=== PATIENT | female | born 1995 | race Caucasian/White ===

== ENCOUNTER 2023-06-24 07:01 | Day surgery (SDC) | payer MEDICAID ==
[~2023-06-24 07:01] MED LIST: Sodium Chloride 0.9% 1,000 ML IV SCH
[2023-06-24] MEDS ORDERED: Midazolam 1 MG/ML 2 ML SDV ONE (07:25)
[2023-06-24] MEDS ORDERED: fentaNYL 100 MCG/2 ML SDV ONE (07:25)
[2023-06-24] MEDS ORDERED: Propofol 200 MG/20 ML SDV ONE ×2 (07:25→08:45)
[2023-06-24] MEDS: Sodium Chloride 0.9% 1,000 ML IV SCH (07:43)
== END 2023-06-24 09:58 | disposition home or self-care (01) ==
LOC: JP.SDS 07:01
PROVIDERS: ATTEND Surgery
DX: R10.9 Unspecified abdominal pain (principal); R19.7 Diarrhea, unspecified; K21.9 Gastro-esophageal reflux disease without esophagitis; F32.A Depression, unspecified; E66.01 Morbid (severe) obesity due to excess calories; Z68.41 Body mass index [BMI] 40.0-44.9, adult
CPT/HCPCS: 45380; 81025; J2250; J2704; J3010; J7030; 88305